=== PATIENT | male | born 1960 | race Two or more races ===

== ENCOUNTER 2018-10-21 12:35 | Emergency (ER) | payer SELFPAY ==
[~2018-10-21] VITALS: Ht 172.7 cm; Wt 76.0 kg
[2018-10-21] MEDS ORDERED: KETOROLAC 60MG/2ML VIAL IM STA (18:29)
[2018-10-21 21:25] VITALS: BP 136/60
== END 2018-10-21 21:27 | disposition home or self-care (01) ==
LOC: ER 12:35
DX: M54.32 Sciatica, left side (principal); F17.210 Nicotine dependence, cigarettes, uncomplicated
CPT/HCPCS: 72100; 73502; 96372; 99283; J1885

== ENCOUNTER 2021-06-06 23:26 | Emergency (ER) | payer OTHER ==
[~2021-06-06] VITALS: Ht 172.7 cm; Wt 80.0 kg
[2021-06-07] MEDS ORDERED: DIPHENHYDRAMINE 50MG CAPSULE PO ONE (01:30)
[2021-06-07] MEDS ORDERED: DEXAMETHASONE 4MG TABLET PO ONE (01:30)
[2021-06-07 02:04] LABS: CHLORIDE 113 mEq/L (98-107)
[2021-06-07 02:13] LABS: BASOPHILS % 1.5 % (0.0-2.0); EOSINOPHILS % 6.8 % (0.0-5.0); HEMATOCRIT. 40.2 % (42.0-52.0); LYMPHOCYTES % 28.7 % (20.0-50.0); MEAN CORPUSCULAR HEMOGLOBIN 31.9 pg (28.0-32.0); MEAN CORPUSCULAR VOLUME 91.7 fL (80.0-94.0); MEAN PLATELET VOLUME 9.1 fl (7.4-10.4); MONOCYTES % 7.8 % (2.0-8.0); NEUTROPHILS % 55.2 % (40.0-76.0); PLATELET 185 x1000/uL (130-400); RED BLOOD CELL COUNT 4.39 mill/uL (4.7-6.1); RED CELL DISTRIBUTION WIDTH 13.7 % (11.6-14.6)
[2021-06-07] MEDS ORDERED: PETR5OIN3 TP (02:22)
[2021-06-07] MEDS ORDERED: B50 MT (02:32)
[2021-06-07 03:36] VITALS: BP 129/55
== END 2021-06-07 03:39 | disposition home or self-care (01) ==
LOC: ER 23:26
DX: R22.0 Localized swelling, mass and lump, head (principal); T78.49XA Other allergy, initial encounter; X58.XXXA Exposure to other specified factors, initial encounter; Z87.891 Personal history of nicotine dependence
CPT/HCPCS: 36415; 71045; 80053; 83880; 84484; 85025; 99284; J8540; Q0163

== ENCOUNTER 2025-08-06 11:20 | Inpatient (IN) | payer OTHER ==
[~2025-08-06] VITALS: Ht 170.2 cm; Wt 71.7 kg
[~2025-08-06 11:20] MED LIST: DIPH50CA42 MT; PETR5OIN3 TP
[2025-08-06 12:21] LABS: BASOPHILS % 0.7 % (0.0-2.0); EOSINOPHILS % 1.3 % (0.0-5.0); HEMATOCRIT. 36.6 % (42.0-52.0); HEMOGLOBIN. 12.3 g/dL (14.0-18.0); LYMPHOCYTES % 18.5 % (20.0-50.0); MEAN PLATELET VOLUME 8.6 fl (7.4-10.4); MONOCYTES % 6.7 % (2.0-8.0); NEUTROPHILS % 72.8 % (40.0-76.0); PLATELET 177 x1000/uL (130-400); RED BLOOD CELL COUNT 4.02 mill/uL (4.7-6.1); RED CELL DISTRIBUTION WIDTH 14.1 % (11.6-14.6)
[2025-08-06 12:42] LABS: CREATININE 0.9 mg/dL (0.6-1.3); TROPONIN I HIGH SENSITIVITY 18 ng/L (3.0-53); UREA NITROGEN BLOOD 11 mg/dL (9-23)
[2025-08-06 12:44] LABS: ASPARTATE AMINOTRANSFERASE 16 IU/L (<34); BILIRUBIN DIRECT 0.4 mg/dL (<=3.0); BILIRUBIN TOTAL 1.2 mg/dL (0.1-1.0); PROTEIN TOTAL 6.3 g/dL (6.0-8.3)
[2025-08-06] MEDS: FUROSEMIDE 40MG/4ML VIAL IVP ONE (13:48)
[2025-08-06] MEDS: ASPIRIN 81MG TABLET PO ONE (14:21)
[2025-08-06] MEDS ORDERED: MAGNESIUM/ALUMINUM HYDROXIDE/SIMETHICONE 30ML UDC PO PRN (14:30)
[2025-08-06] MEDS ORDERED: ZOLPIDEM TARTRATE 5MG TABLET PO PRN (14:30)
[2025-08-06] MEDS ORDERED: ONDANSETRON HCL 4MG/2ML INJ IV PRN (14:30)
[2025-08-06] MEDS ORDERED: CLONIDINE 0.1MG TABLET PO PRN (14:30)
[2025-08-06] MEDS ORDERED: ACETAMINOPHEN 325MG TABLET PO PRN (14:30)
[2025-08-06] MEDS ORDERED: METH-372 PO (14:32)
[2025-08-06] MEDS ORDERED: NALOXONE HCL 0.4MG/ML VIAL IV PRN (14:45)
[2025-08-06 16:00] VITALS: BP 126/43; PULSE 74; RESP 16; TEMP 36.3068
[2025-08-06] MEDS ORDERED: DEXTROSE 50% WATER 50ML SYRINGE IV PRN (16:15)
[2025-08-06] MEDS: INSULIN LISPRO 100 UNITS/ML SUBCUT SCH (17:50)
[2025-08-06] MEDS: BLOOD SUGAR DIAGNOSTIC STRIP TEST SCH (18:18)
[2025-08-06] MEDS: FUROSEMIDE 40MG/4ML VIAL IVP SCH (18:19)
[2025-08-06] MEDS: THIAMINE HCL 100MG TABLET PO SCH (18:19)
[2025-08-06 20:00] VITALS: BP 128/94; PULSE 75; RESP 18; TEMP 36.6; O2SAT 99
[2025-08-06] MEDS: ATORVASTATIN CALCIUM 40MG TABLET PO SCH (20:10)
[2025-08-06] MEDS ORDERED: ATORVASTATIN CALCIUM 40MG TABLET PO SCH (21:00)
[2025-08-07] VITALS (7 sets, daily range): BP systolic 18–135; BP diastolic 45–90; PULSE 60–82; RESP 16–18; TEMP 36.2–36.9; O2SAT 98–100
[2025-08-07 01:19] LABS: TROPONIN I HIGH SENSITIVITY 14 ng/L (3.0-53)
[2025-08-07 07:08] LABS: BASOPHILS % 1.2 % (0.0-2.0); EOSINOPHILS % 0.8 % (0.0-5.0); HEMATOCRIT. 38.6 % (42.0-52.0); HEMOGLOBIN. 13.0 g/dL (14.0-18.0); LYMPHOCYTES % 16.6 % (20.0-50.0); MEAN PLATELET VOLUME 9.2 fl (7.4-10.4); MONOCYTES % 6.0 % (2.0-8.0); NEUTROPHILS % 75.4 % (40.0-76.0); PLATELET 200 x1000/uL (130-400); RED BLOOD CELL COUNT 4.21 mill/uL (4.7-6.1); RED CELL DISTRIBUTION WIDTH 13.8 % (11.6-14.6)
[2025-08-07 07:36] LABS: TRIGLYCERIDE 113.0 mg/dL (0-150)
[2025-08-07 07:37] LABS: CREATININE 1.0 mg/dL (0.6-1.3); LDL CHOLESTEROL 157.0 mg/dL (5-100); UREA NITROGEN BLOOD 12 mg/dL (9-23)
[2025-08-07 07:50] LABS: TROPONIN I HIGH SENSITIVITY 17 ng/L (3.0-53)
[2025-08-07 08:53] LABS: INFLUENZA TYPE A Presumptive Negative (Pres. Neg.)
[2025-08-07 08:54] LABS: INFLUENZA TYPE B Presumptive Negative (Pres. Neg.)
[2025-08-07] MEDS: ENOXAPARIN 40MG/0.4ML SYR SUBCUT SCH (09:00)
[2025-08-07] MEDS ORDERED: ASPIRIN 81MG EC TABLET PO SCH (09:00)
[2025-08-07] MEDS: PANTOPRAZOLE SODIUM 40 MG/VIAL IV SCH (09:10)
[2025-08-07] MEDS: ASPIRIN 81MG TABLET PO SCH (09:54)
[2025-08-07] MEDS: METHIMAZOLE 5MG TABLET PO SCH (09:54)
[2025-08-08] VITALS: BP 102/48; PULSE 70; RESP 17; TEMP 36.5; O2SAT 95
[2025-08-08 04:00] VITALS: BP 107/48; PULSE 66; RESP 17; TEMP 36.6; O2SAT 94
[2025-08-08 08:00] VITALS: BP 122/60; PULSE 80; RESP 18; TEMP 36.2; O2SAT 98
[2025-08-08] MEDS ORDERED: EPINEPHRINE 0.1MG/ML (1:10,000) 10ML SYR ONE (09:15)
[2025-08-08] MEDS ORDERED: IODIXANOL 320MG/ML 100 ML BOTTLE IV ONE (09:16)
[2025-08-08] MEDS ORDERED: HEPARIN 1000 UNITS/ML 10ML ONE (09:16)
[2025-08-08] MEDS ORDERED: LIDOCAINE HCL 1% 20ML VIAL ONE (09:16)
[2025-08-08] MEDS ORDERED: ATROPINE SULFATE 1MG/10ML SYR ONE (09:16)
[2025-08-08] MEDS ORDERED: VERAPAMIL HCL 2.5 MG/1 ML 2ML VIAL IV ONE (09:16)
[2025-08-08] MEDS ORDERED: DIPHENHYDRAMINE 50MG/ML VIAL ONE (09:16)
[2025-08-08] MEDS ORDERED: MIDAZOLAM HCL 2 MG/2 ML VIAL ONE (09:47)
[2025-08-08] MEDS ORDERED: FENTANYL CITRATE/PF 50MCG/ML 2ML VIAL ONE (09:47)
[2025-08-08] MEDS ORDERED: ATROPINE SULFATE 1MG/10ML SYR IV PRN (11:30)
[2025-08-08] MEDS ORDERED: ACETAMINOPHEN 325MG TABLET PO PRN (15:30)
[2025-08-08] MEDS ORDERED: NITROGLYCERIN 0.4MG TABLET SL SL PRN (15:30)
[2025-08-08 16:00] VITALS: BP 118/56; PULSE 78; RESP 12; TEMP 36.8; O2SAT 99
[2025-08-08 20:00] VITALS: BP 131/52; PULSE 72; RESP 22; TEMP 36.6; O2SAT 97
[2025-08-09] VITALS: BP 109/48; PULSE 70; RESP 15; TEMP 36.6; O2SAT 99
[2025-08-09 04:00] VITALS: BP 107/46; PULSE 68; RESP 14; TEMP 36.7; O2SAT 100
[2025-08-09 08:00] VITALS: BP 115/96; PULSE 68; RESP 24; TEMP 36.7; O2SAT 100
[2025-08-09 08:47] LABS: BASOPHILS % 1.8 % (0.0-2.0); EOSINOPHILS % 2.5 % (0.0-5.0); HEMATOCRIT. 39.7 % (42.0-52.0); HEMOGLOBIN. 13.3 g/dL (14.0-18.0); LYMPHOCYTES % 21.0 % (20.0-50.0); MEAN PLATELET VOLUME 9.1 fl (7.4-10.4); MONOCYTES % 8.3 % (2.0-8.0); NEUTROPHILS % 66.4 % (40.0-76.0); PLATELET 180 x1000/uL (130-400); RED BLOOD CELL COUNT 4.37 mill/uL (4.7-6.1); RED CELL DISTRIBUTION WIDTH 14.2 % (11.6-14.6)
[2025-08-09 09:04] LABS: CREATININE 0.9 mg/dL (0.6-1.3); UREA NITROGEN BLOOD 12 mg/dL (9-23)
[2025-08-09 12:00] VITALS: BP 101/51; PULSE 75; RESP 20; TEMP 36.6; O2SAT 99
[2025-08-09 16:00] VITALS: BP 126/49; PULSE 70; RESP 27; TEMP 36.8; O2SAT 97
[2025-08-09 20:00] VITALS: BP 114/45; PULSE 69; RESP 15; TEMP 36.2; O2SAT 98
[2025-08-09] MEDS: HYDROCODONE/ACETAMINOPHEN 5/325MG TABLET PO PRN (23:40)
[2025-08-10] VITALS: BP 116/42; PULSE 73; RESP 27; TEMP 36.7; O2SAT 98
[2025-08-10 04:00] VITALS: BP 118/45; PULSE 81; RESP 18; TEMP 36.6; O2SAT 81
[2025-08-10 07:49] VITALS: BP 107/51; PULSE 61; RESP 20; TEMP 36.5; O2SAT 98
[2025-08-10] MEDS: METHIMAZOLE 10MG TABLET PO SCH (11:55)
[2025-08-10 12:00] VITALS: BP 118/46; PULSE 71; RESP 18; TEMP 36.7; O2SAT 98
[2025-08-10 16:00] VITALS: BP 100/42; PULSE 63; RESP 19; TEMP 36.5; O2SAT 98
[2025-08-10 18:21] LABS: BASOPHILS % 2.1 % (0.0-2.0); EOSINOPHILS % 2.9 % (0.0-5.0); HEMATOCRIT. 39.5 % (42.0-52.0); HEMOGLOBIN. 13.7 g/dL (14.0-18.0); LYMPHOCYTES % 21.8 % (20.0-50.0); MEAN PLATELET VOLUME 9.2 fl (7.4-10.4); MONOCYTES % 8.1 % (2.0-8.0); NEUTROPHILS % 65.1 % (40.0-76.0); PLATELET 193 x1000/uL (130-400); RED BLOOD CELL COUNT 4.38 mill/uL (4.7-6.1); RED CELL DISTRIBUTION WIDTH 13.7 % (11.6-14.6)
[2025-08-10 18:36] LABS: CREATININE 1.0 mg/dL (0.6-1.3); UREA NITROGEN BLOOD 13 mg/dL (9-23)
[2025-08-10 20:00] VITALS: BP 116/44; PULSE 73; RESP 23; TEMP 36.8; O2SAT 99
[2025-08-11] VITALS: BP 115/50; PULSE 66; RESP 16; TEMP 36.6; O2SAT 98
[2025-08-11 04:00] VITALS: BP 104/91; PULSE 63; RESP 14; TEMP 36.7; O2SAT 98
[2025-08-11 08:00] VITALS: BP 118/41; PULSE 72; RESP 13; TEMP 36.4; O2SAT 99
[2025-08-11 12:00] VITALS: BP 113/95; PULSE 65; RESP 19; TEMP 36.7; O2SAT 100
[2025-08-11 13:38] LABS: BASOPHILS % 0.9 % (0.0-2.0); EOSINOPHILS % 2.0 % (0.0-5.0); HEMATOCRIT. 40.7 % (42.0-52.0); HEMOGLOBIN. 13.8 g/dL (14.0-18.0); LYMPHOCYTES % 23.4 % (20.0-50.0); MEAN PLATELET VOLUME 8.9 fl (7.4-10.4); MONOCYTES % 8.5 % (2.0-8.0); NEUTROPHILS % 65.2 % (40.0-76.0); PLATELET 197 x1000/uL (130-400); RED BLOOD CELL COUNT 4.47 mill/uL (4.7-6.1); RED CELL DISTRIBUTION WIDTH 13.7 % (11.6-14.6)
[2025-08-11 13:53] LABS: CREATININE 1.0 mg/dL (0.6-1.3)
[2025-08-11 13:54] LABS: UREA NITROGEN BLOOD 11 mg/dL (9-23)
[2025-08-11 13:56] LABS: INR 1.0
[2025-08-11 16:00] VITALS: BP 105/41; PULSE 67; RESP 13; TEMP 36.8; O2SAT 96
[2025-08-11 20:00] VITALS: BP 114/41; PULSE 65; RESP 21; TEMP 36.6; O2SAT 96
[2025-08-11] MEDS ORDERED: BISACODYL 10MG SUPP PR PRN (21:00)
[2025-08-11] MEDS ORDERED: DIPHENHYDRAMINE 25MG CAPSULE PO PRN (21:00)
[2025-08-11] MEDS: ALLOPURINOL 300 MG TABLET PO SCH (21:33)
[2025-08-11] MEDS: ASCORBIC ACID 500 MG TABLET PO SCH (21:33)
[2025-08-11] MEDS: DOCUSATE SODIUM 100MG CAPSULE PO SCH (21:33)
[2025-08-11] MEDS: CHLORHEXIDINE GLUCONATE 4% EXTERNAL USE TOP SCH (21:36)
[2025-08-12] VITALS (56 sets, daily range): BP systolic 67–173; BP diastolic 40–110; PULSE 60–89; RESP 8–30; TEMP 36.7–36.8; O2SAT 97–100
[2025-08-12] MEDS ORDERED: LR with VERAPAMIL, NTG, HEPARIN, SODIUM BICARBONATE (Soln) IV PRN (05:00)
[2025-08-12] MEDS ORDERED: DEL NIDO CARDIOPLEGIA 1,000 ML (PREMIX) IV NR (05:00)
[2025-08-12] MEDS ORDERED: VANCOMYCIN 1G PREMIX 200 ML IV SCH (05:00)
[2025-08-12] MEDS ORDERED: NOREPINEPHRINE 8MG/250ML PMX 250 ML IV PRN (05:00)
[2025-08-12] MEDS ORDERED: NICARDIPINE 40MG/200ML PREMIX 200 ML IV PRN (05:00)
[2025-08-12] MEDS ORDERED: DEL NIDO CARDIOPLEGIA 1,000 ML (PREMIX) IV SCH (05:00)
[2025-08-12] MEDS ORDERED: INSULIN REGULAR 100U/100ML PMX 100 ML IV SCH (05:00)
[2025-08-12] MEDS ORDERED: PAPAVERINE HCL 180MG in SODIUM CHLORIDE 0.9% 24ML IV PRN (05:00)
[2025-08-12] MEDS ORDERED: DOPAMINE 400MG/250ML PREMIX 250 ML IV PRN (05:00)
[2025-08-12] MEDS ORDERED: AMINOCAPROIC ACID 5,000 MG in SODIUM CHLORIDE 0.9% 250 ML IV PRN (05:00)
[2025-08-12] MEDS ORDERED: DOBUTAMINE 250 MG/250 ML PREMIX IV PRN (05:00)
[2025-08-12] MEDS ORDERED: EPINEPHRINE 5 MG in DEXT 5% WATER 250 ML IV PRN (05:00)
[2025-08-12] MEDS: FAMOTIDINE 20MG/2ML VIAL IV SCH (08:27)
[2025-08-12] MEDS: CHLORHEXIDINE GLUCONATE 4% EXTERNAL USE TOP SCH (08:28)
[2025-08-12 08:57] LABS: BASOPHILS % 2.2 % (0.0-2.0); EOSINOPHILS % 2.4 % (0.0-5.0); HEMATOCRIT. 38.4 % (42.0-52.0); HEMOGLOBIN. 13.2 g/dL (14.0-18.0); LYMPHOCYTES % 24.7 % (20.0-50.0); MEAN PLATELET VOLUME 8.9 fl (7.4-10.4); MONOCYTES % 7.8 % (2.0-8.0); NEUTROPHILS % 62.9 % (40.0-76.0); PLATELET 185 x1000/uL (130-400); RED BLOOD CELL COUNT 4.23 mill/uL (4.7-6.1); RED CELL DISTRIBUTION WIDTH 13.8 % (11.6-14.6)
[2025-08-12] MEDS ORDERED: NITROGLYCERIN 50MG PREMIX 250 ML IV ONE (08:57)
[2025-08-12] MEDS ORDERED: DEXMEDETOMIDINE 250 ML IV ONE (08:57)
[2025-08-12 09:18] LABS: CREATININE 0.8 mg/dL (0.6-1.3)
[2025-08-12 09:19] LABS: UREA NITROGEN BLOOD 12 mg/dL (9-23)
[2025-08-12 09:21] LABS: PHOSPHORUS 3.9 mg/dL (2.5-4.9)
[2025-08-12] MEDS ORDERED: POLYMYXIN B SULFATE 500000 UNITS/VIAL ONE ×2 (09:33→10:45)
[2025-08-12] MEDS ORDERED: THROMBIN (BOVINE) 5000 UNITS/VIAL TOP ONE (09:33)
[2025-08-12] MEDS ORDERED: SKIN ADHESIVE 0.7 GM EA TOP ONE (09:34)
[2025-08-12] MEDS ORDERED: ROCURONIUM BROMIDE 10MG/ML VIAL 5ML IV ONE ×2 (10:42→12:03)
[2025-08-12] MEDS ORDERED: ONDANSETRON HCL 4MG/2ML INJ ONE ×2 (10:42→14:02)
[2025-08-12] MEDS ORDERED: AMINOCAPROIC ACID 250 MG/ML 20ML VIAL ONE ×2 (10:42→10:54)
[2025-08-12] MEDS ORDERED: METOCLOPRAMIDE HCL 10MG/2ML VIAL ONE (10:42)
[2025-08-12] MEDS ORDERED: ETOMIDATE 2MG/ML 10ML VIAL IV ONE (10:42)
[2025-08-12] MEDS ORDERED: PROPOFOL 200MG/20ML VIAL IV ONE (10:43)
[2025-08-12] MEDS ORDERED: FENTANYL CITRATE/PF 50MCG/ML 5ML VIAL ONE (10:44)
[2025-08-12] MEDS ORDERED: MIDAZOLAM HCL 2 MG/2 ML VIAL ONE (10:46)
[2025-08-12] MEDS ORDERED: HEPARIN 1000 UNITS/ML 10ML ONE ×2 (10:51→11:57)
[2025-08-12] MEDS ORDERED: LIDOCAINE HCL 2% 5ML SYRINGE IV ONE (10:54)
[2025-08-12] MEDS ORDERED: ACETAMINOPHEN 500MG TABLET ONE (11:02)
[2025-08-12] MEDS ORDERED: CALCIUM CHLORIDE 1GM/10ML SYR IV ONE (11:57)
[2025-08-12] MEDS ORDERED: PROPOFOL 10MG/ML 100ML 100 ML IV ONE (12:11)
[2025-08-12] MEDS ORDERED: ACETAMINOPHEN 1000MG/100ML 100 ML IV ONE (12:37)
[2025-08-12] MEDS ORDERED: CEFAZOLIN SODIUM 1000MG/VIAL ONE ×2 (12:52→14:06)
[2025-08-12] MEDS ORDERED: PROTAMINE SULFATE 10MG/ML VIAL 25ML IV ONE (13:48)
[2025-08-12] MEDS ORDERED: DESMOPRESSIN ACETATE 4MCG/ML AMP ONE (14:15)
[2025-08-12] MEDS ORDERED: SODIUM CHLORIDE 0.9% 500 ML IV PRN (14:30)
[2025-08-12] MEDS ORDERED: ONDANSETRON HCL 4MG/2ML INJ IV PRN (14:30)
[2025-08-12] MEDS ORDERED: ACETAMINOPHEN 325MG TABLET PO PRN (14:30)
[2025-08-12] MEDS ORDERED: MAGNESIUM SULFATE 3 GM in DEXT 5% WATER 100 ML IV PRN (14:30)
[2025-08-12] MEDS ORDERED: CALCIUM CHLORIDE 5,000 MG in DEXT 5% WATER 500 ML IV PRN (14:30)
[2025-08-12] MEDS ORDERED: ALBUMIN HUMAN 25GM/100ML (25%) IV PRN (14:30)
[2025-08-12] MEDS ORDERED: MAGNESIUM 1 G PREMIX 100 ML IV PRN (14:30)
[2025-08-12] MEDS ORDERED: CALCIUM CHLORIDE 3,000 MG in DEXT 5% WATER 250 ML IV PRN (14:30)
[2025-08-12 14:50] LABS: BASOPHILS % 1.1 % (0.0-2.0); EOSINOPHILS % 1.2 % (0.0-5.0); HEMATOCRIT. 28.9 % (42.0-52.0); HEMOGLOBIN. 10.1 g/dL (14.0-18.0); LYMPHOCYTES % 24.9 % (20.0-50.0); MEAN PLATELET VOLUME 9.0 fl (7.4-10.4); MONOCYTES % 3.0 % (2.0-8.0); NEUTROPHILS % 69.8 % (40.0-76.0); PLATELET 122 x1000/uL (130-400); RED BLOOD CELL COUNT 3.22 mill/uL (4.7-6.1); RED CELL DISTRIBUTION WIDTH 13.4 % (11.6-14.6)
[2025-08-12] MEDS: BLOOD SUGAR DIAGNOSTIC STRIP TEST SCH (15:00)
[2025-08-12] MEDS ORDERED: DEXTROSE 50% WATER 50ML SYRINGE IV PRN ×2 (15:00)
[2025-08-12 15:02] LABS: INR 1.1
[2025-08-12 15:04] LABS: CREATININE 1.0 mg/dL (0.6-1.3); UREA NITROGEN BLOOD 12 mg/dL (9-23)
[2025-08-12 15:06] LABS: ASPARTATE AMINOTRANSFERASE 36 IU/L (<34); BILIRUBIN TOTAL 0.6 mg/dL (0.1-1.0); PHOSPHORUS 1.8 mg/dL (2.5-4.9)
[2025-08-12 15:07] LABS: PROTEIN TOTAL 5.5 g/dL (6.0-8.3)
[2025-08-12] MEDS ORDERED: MIDAZOLAM HCL 5 MG/5 ML VIAL IV SCH (15:15)
[2025-08-12] MEDS: CALCIUM CHLORIDE 1GM/10ML SYR IV NR (15:23)
[2025-08-12] MEDS: MIDAZOLAM HCL 2 MG/2 ML VIAL IV SCH (15:29)
[2025-08-12] MEDS: DEXT 5%/0.45% NACL 1000ML 1,000 ML IV SCH (15:29)
[2025-08-12] MEDS: DOPAMINE 400MG/250ML PREMIX 250 ML IV PRN (15:31)
[2025-08-12] MEDS: EPINEPHRINE 5 MG in DEXT 5% WATER 245 ML IV PRN (15:32)
[2025-08-12] MEDS: KCL 10MEQ/50ML PREMIX 150 ML IV PRN (15:42)
[2025-08-12 15:43] LABS: BG BASE EXCESS -0.6 mmol/L (-2.0-3.0); BG CARBOXYHEMOGLOBIN 0.3 % (0.5-1.5); BG DEOXYHEMOGLOBIN 0.5 % (0.0-5.0); BG FRACTION INSPIRED OXYGEN 100; BG HCO3 ACT 25.8 mmol/L (21.0-28.0); BG METHEMOGLOBIN 0.1 % (0.5-1.5); BG OXYGEN SATURATION 99.5 % (94.0-98.0); BG OXYHEMOGLOBIN 99.1 % (94.0-98.0); BG PCO2 49.9 mmHg (35.0-48.0); BG PH 7.331 (7.350-7.450); BG PO2 259.6 mmHg (83.0-108.0); BG SAMPLE SITE ALINE; BG TOTAL HEMOGLOBIN 11.6 g/dL (13.5-17.5); BG VENT MODE MASK - NRB
[2025-08-12] MEDS: ALBUMIN HUMAN 25GM/500ML (5%) IV SCH (15:58)
[2025-08-12] MEDS: COAGULATION FACTOR VIIA RECOMB 1MG VIAL IV NR (15:59)
[2025-08-12] MEDS: MIDAZOLAM HCL 2 MG/2 ML VIAL IV NR (16:00)
[2025-08-12] MEDS: FENTANYL CITRATE/PF 50MCG/ML 2ML VIAL IV SCH (16:30)
[2025-08-12 17:01] LABS: BASOPHILS % 0.5 % (0.0-2.0); EOSINOPHILS % 0.2 % (0.0-5.0); HEMATOCRIT. 27.2 % (42.0-52.0); HEMOGLOBIN. 9.3 g/dL (14.0-18.0); LYMPHOCYTES % 7.4 % (20.0-50.0); MEAN PLATELET VOLUME 8.6 fl (7.4-10.4); MONOCYTES % 6.3 % (2.0-8.0); NEUTROPHILS % 85.6 % (40.0-76.0); PLATELET 81 x1000/uL (130-400); RED BLOOD CELL COUNT 3.01 mill/uL (4.7-6.1); RED CELL DISTRIBUTION WIDTH 13.6 % (11.6-14.6)
[2025-08-12 17:11] LABS: INR 0.9
[2025-08-12 17:14] LABS: CREATININE 1.1 mg/dL (0.6-1.3); UREA NITROGEN BLOOD 13 mg/dL (9-23)
[2025-08-12 19:34] LABS: BG BASE EXCESS -0.6 mmol/L (-2.0-3.0); BG CARBOXYHEMOGLOBIN 0.3 % (0.5-1.5); BG DEOXYHEMOGLOBIN 1.2 % (0.0-5.0); BG FLOW(L/min) 5.00 L/min; BG FRACTION INSPIRED OXYGEN 40; BG HCO3 ACT 24.1 mmol/L (21.0-28.0); BG METHEMOGLOBIN 0.3 % (0.5-1.5); BG OXYGEN SATURATION 98.8 % (94.0-98.0); BG OXYHEMOGLOBIN 98.2 % (94.0-98.0); BG PCO2 40.0 mmHg (35.0-48.0); BG PH 7.398 (7.350-7.450); BG PO2 163.4 mmHg (83.0-108.0); BG SAMPLE SITE ALINE; BG TOTAL HEMOGLOBIN 10.6 g/dL (13.5-17.5); BG VENT MODE NASAL CANNULA
[2025-08-12 19:51] LABS: HEMATOCRIT. 28.4 % (42.0-52.0); HEMOGLOBIN. 9.8 g/dL (14.0-18.0); MEAN PLATELET VOLUME 8.9 fl (7.4-10.4); PLATELET 90 x1000/uL (130-400); RED BLOOD CELL COUNT 3.23 mill/uL (4.7-6.1); RED CELL DISTRIBUTION WIDTH 14.4 % (11.6-14.6)
[2025-08-12 20:03] LABS: INR 0.9
[2025-08-12] MEDS: FUROSEMIDE 40MG/4ML VIAL IVP NR (20:08)
[2025-08-12 20:13] LABS: CREATININE 1.1 mg/dL (0.6-1.3); UREA NITROGEN BLOOD 14 mg/dL (9-23)
[2025-08-12 20:15] LABS: PHOSPHORUS 2.2 mg/dL (2.5-4.9)
[2025-08-12 20:24] LABS: BAND% 2.0 % (1.0-6.0); LYMPHOCYTES % MANUAL 12.0 % (20.0-50.0); MONOCYTES % MANUAL 7.0 % (2.0-8.0); NEUTROPHILS % MANUAL 79.0 % (45.0-75.0)
[2025-08-12 20:25] LABS: PLATELET ESTIMATE DECREASED
[2025-08-12] MEDS: KCL 10MEQ/50ML PREMIX 200 ML IV PRN (20:57)
[2025-08-12] MEDS: MAGNESIUM 2 G PREMIX 50 ML IV PRN (20:58)
[2025-08-12] MEDS: BACITRACIN 14GM TUBE TOP SCH (21:00)
[2025-08-12] MEDS: DOCUSATE SODIUM 100MG CAPSULE PO SCH (21:00)
[2025-08-12] MEDS: IPRATROPIUM/ALBUTEROL 0.5-3(2.5)MG/3ML NEB HHN SCH (21:23)
[2025-08-12] MEDS: MAGNESIUM HYDROXIDE 400MG/5ML 30ML UDC PO SCH (22:30)
[2025-08-12] MEDS: CEFAZOLIN 1000MG PREMIX 50 ML IV SCH (23:04)
[2025-08-12] MEDS: ALBUMIN HUMAN 12.5G/250ML (5%) IV PRN (23:14)
[2025-08-13] VITALS (103 sets, daily range): BP systolic 51–137; BP diastolic 36–90; PULSE 81–137; RESP 9–40; TEMP 36.8–37.3; O2SAT 95–100
[2025-08-13 05:28] LABS: MEAN PLATELET VOLUME 9.6 fl (7.4-10.4); PLATELET 114 x1000/uL (130-400); RED BLOOD CELL COUNT 2.35 mill/uL (4.7-6.1); RED CELL DISTRIBUTION WIDTH 14.4 % (11.6-14.6)
[2025-08-13 05:37] LABS: CREATININE 1.3 mg/dL (0.6-1.3); UREA NITROGEN BLOOD 16 mg/dL (9-23)
[2025-08-13 05:39] LABS: PHOSPHORUS 3.5 mg/dL (2.5-4.9)
[2025-08-13] MEDS: KCL 10MEQ/50ML PREMIX 100 ML IV PRN (05:52)
[2025-08-13] MEDS: INSULIN REGULAR 100U/100ML PMX 100 ML IV PRN (05:52)
[2025-08-13 06:44] LABS: HEMATOCRIT. 20.6 % (42.0-52.0); HEMOGLOBIN. 7.0 g/dL (14.0-18.0)
[2025-08-13] MEDS: FAMOTIDINE 20MG/2ML VIAL IV SCH (08:45)
[2025-08-13] MEDS: MORPHINE SULFATE 4 MG/ML INJ (FOR IV/IM USE) IV PRN (10:50)
[2025-08-13 20:46] LABS: BAND% 5.0 % (1.0-6.0); LYMPHOCYTES % MANUAL 5.0 % (20.0-50.0); MONOCYTES % MANUAL 10.0 % (2.0-8.0); NEUTROPHILS % MANUAL 80.0 % (45.0-75.0); PLATELET ESTIMATE DECREASED
[2025-08-13] MEDS: ACETAMINOPHEN 325MG TABLET PO PRN (21:03)
[2025-08-13] MEDS: KETOROLAC 30MG/ML VIAL IV PRN (22:21)
[2025-08-14] VITALS (105 sets, daily range): BP systolic 77–120; BP diastolic 48–96; PULSE 80–118; RESP 12–39; TEMP 36.5–37.3; O2SAT 92–100
[2025-08-14 06:15] LABS: HEMATOCRIT. 22.8 % (42.0-52.0); HEMOGLOBIN. 7.9 g/dL (14.0-18.0); MEAN PLATELET VOLUME 9.5 fl (7.4-10.4); PLATELET 69 x1000/uL (130-400); RED BLOOD CELL COUNT 2.52 mill/uL (4.7-6.1); RED CELL DISTRIBUTION WIDTH 14.8 % (11.6-14.6)
[2025-08-14 06:41] LABS: CREATININE 1.1 mg/dL (0.6-1.3); UREA NITROGEN BLOOD 18 mg/dL (9-23)
[2025-08-14 06:43] LABS: PHOSPHORUS 3.9 mg/dL (2.5-4.9)
[2025-08-14] MEDS: MAGNESIUM 2 G PREMIX 50 ML IV SCH (07:22)
[2025-08-14] MEDS ORDERED: DEXTROSE 50% WATER 50ML SYRINGE IV PRN (07:30)
[2025-08-14] MEDS: BLOOD SUGAR DIAGNOSTIC STRIP TEST SCH (07:50)
[2025-08-14] MEDS: INSULIN LISPRO 100 UNITS/ML SUBCUT SCH (08:06)
[2025-08-14] MEDS ORDERED: ASPIRIN 81MG EC TABLET PO SCH (09:00)
[2025-08-14] MEDS: METOCLOPRAMIDE HCL 10MG/2ML VIAL IV SCH (12:02)
[2025-08-14] MEDS: FUROSEMIDE 40MG/4ML VIAL IVP SCH (12:02)
[2025-08-14 13:39] LABS: BAND% 8.0 % (1.0-6.0); LYMPHOCYTES % MANUAL 11.0 % (20.0-50.0); MONOCYTES % MANUAL 15.0 % (2.0-8.0); NEUTROPHILS % MANUAL 66.0 % (45.0-75.0); PLATELET ESTIMATE DECREASED
[2025-08-14] MEDS: MIDODRINE HCL 5MG TABLET PO SCH ×2 (15:12→21:13)
[2025-08-14 15:17] LABS: HEMATOCRIT. 28.1 % (42.0-52.0); HEMOGLOBIN. 9.8 g/dL (14.0-18.0); MEAN PLATELET VOLUME 9.4 fl (7.4-10.4); PLATELET 81 x1000/uL (130-400); RED BLOOD CELL COUNT 3.23 mill/uL (4.7-6.1); RED CELL DISTRIBUTION WIDTH 15.2 % (11.6-14.6)
[2025-08-14 15:29] LABS: CREATININE 1.2 mg/dL (0.6-1.3); UREA NITROGEN BLOOD 28 mg/dL (9-23)
[2025-08-14 15:31] LABS: PHOSPHORUS 3.9 mg/dL (2.5-4.9)
[2025-08-14 15:47] LABS: BAND% 1.0 % (1.0-6.0); LYMPHOCYTES % MANUAL 5.0 % (20.0-50.0); MONOCYTES % MANUAL 8.0 % (2.0-8.0); NEUTROPHILS % MANUAL 86.0 % (45.0-75.0); PLATELET ESTIMATE DECREASED
[2025-08-15] VITALS (96 sets, daily range): BP systolic 95–127; BP diastolic 55–91; PULSE 72–95; RESP 12–35; TEMP 36.6696–37.1; O2SAT 93–100
[2025-08-15 06:32] LABS: BASOPHILS % 0.4 % (0.0-2.0); EOSINOPHILS % 0.4 % (0.0-5.0); HEMATOCRIT. 25.4 % (42.0-52.0); HEMOGLOBIN. 8.7 g/dL (14.0-18.0); LYMPHOCYTES % 7.9 % (20.0-50.0); MEAN PLATELET VOLUME 9.4 fl (7.4-10.4); MONOCYTES % 13.0 % (2.0-8.0); NEUTROPHILS % 78.3 % (40.0-76.0); PLATELET 68 x1000/uL (130-400); RED BLOOD CELL COUNT 2.87 mill/uL (4.7-6.1); RED CELL DISTRIBUTION WIDTH 15.9 % (11.6-14.6)
[2025-08-15] MEDS: ALBUMIN HUMAN 25GM/100ML (25%) IV NR (07:01)
[2025-08-15 07:05] LABS: CREATININE 0.9 mg/dL (0.6-1.3)
[2025-08-15 07:06] LABS: UREA NITROGEN BLOOD 23 mg/dL (9-23)
[2025-08-15 07:08] LABS: PHOSPHORUS 2.7 mg/dL (2.5-4.9)
[2025-08-15] MEDS: ACETAMINOPHEN 325MG TABLET PO PRN (09:09)
[2025-08-15] MEDS: FUROSEMIDE 40MG/4ML VIAL IVP SCH (13:20)
[2025-08-15] MEDS: THROAT LOZENGES-BENZOCAINE/MENTH/CETYLPYRD CL LOZENGES MM PRN (15:49)
[2025-08-16] VITALS (9 sets, daily range): BP systolic 105–134; BP diastolic 50–73; PULSE 75–101; RESP 20–28; TEMP 36.6–37.4; O2SAT 93–98
[2025-08-16] MEDS: GUAIFENESIN 200MG/10ML SUGAR FREE UDC PO PRN (09:06)
[2025-08-16 13:08] LABS: CREATININE 1.0 mg/dL (0.6-1.3); INR 1.0; UREA NITROGEN BLOOD 18 mg/dL (9-23)
[2025-08-16 13:16] LABS: BASOPHILS % 0.5 % (0.0-2.0); EOSINOPHILS % 0.5 % (0.0-5.0); HEMATOCRIT. 31.7 % (42.0-52.0); HEMOGLOBIN. 10.7 g/dL (14.0-18.0); LYMPHOCYTES % 8.5 % (20.0-50.0); MEAN PLATELET VOLUME 9.2 fl (7.4-10.4); MONOCYTES % 13.2 % (2.0-8.0); NEUTROPHILS % 77.3 % (40.0-76.0); PLATELET 116 x1000/uL (130-400); RED BLOOD CELL COUNT 3.60 mill/uL (4.7-6.1); RED CELL DISTRIBUTION WIDTH 16.1 % (11.6-14.6)
[2025-08-16] MEDS: FUROSEMIDE 40MG/4ML VIAL IVP NR (15:15)
[2025-08-16] MEDS ORDERED: NALOXONE HCL 0.4MG/ML VIAL IV PRN (15:30)
[2025-08-16] MEDS ORDERED: KETOROLAC 15MG/ML VIAL IV PRN (15:30)
[2025-08-16] MEDS: MAGNESIUM SULFATE 3 GM in DEXT 5% WATER 94 ML IV NR (17:17)
[2025-08-17] VITALS (11 sets, daily range): BP systolic 113–141; BP diastolic 69–81; PULSE 87–108; RESP 20–30; TEMP 36.4–37.3; O2SAT 95–100
[2025-08-17] MEDS ORDERED: HYDR-4001 MT (09:28)
[2025-08-17] MEDS ORDERED: FURO-151 MT (09:28)
[2025-08-17] MEDS ORDERED: ASPI-1160 PO (09:28)
[2025-08-17] MEDS ORDERED: THIA100T72 PO (09:28)
[2025-08-17] MEDS ORDERED: LIP40 PO (09:28)
[2025-08-17] MEDS ORDERED: DOCU-422 PO (09:28)
[2025-08-17] MEDS: TAMSULOSIN HCL 0.4MG SR CAPSULE PO SCH (21:49)
[2025-08-17 21:55] LABS: INFLUENZA TYPE A Presumptive Negative (Pres. Neg.); INFLUENZA TYPE B Presumptive Negative (Pres. Neg.)
[2025-08-18] VITALS (7 sets, daily range): BP systolic 102–139; BP diastolic 61–83; PULSE 88–97; RESP 19–24; TEMP 36.8–37.2; O2SAT 95–100
[2025-08-18] MEDS: TAMSULOSIN HCL 0.4MG SR CAPSULE PO SCH (10:24)
[2025-08-18] MEDS: FAMOTIDINE 20MG TABLET PO SCH (10:25)
[2025-08-18 11:28] LABS: CLARITY URINE CLOUDY (CLEAR); COLOR URINE DARK YELLOW (YELLOW); GLUCOSE URINE NEGATIVE (NEGATIVE); KETONES URINE NEGATIVE (NEGATIVE); LEUKOCYTE ESTERASE URINE TRACE (NEGATIVE); NITRITE URINE NEGATIVE (NEGATIVE); OCCULT BLOOD URINE 3+ (NEGATIVE); PH URINE 5.5 (4.5-8.0); PROTEIN URINE 1+ (NEGATIVE); SPECIFIC GRAVITY URINE 1.014 (1.005-1.030); UROBILINOGEN URINE 1.0 E.U./dL (0.2-1.0)
[2025-08-18 12:20] LABS: RBC URINE TNTC /hpf (0-2)
[2025-08-18 12:21] LABS: SQUAMOUS EPITHELIAL CELL URINE NONE SEEN /lpf (RARE/1+)
[2025-08-18 12:22] LABS: BACTERIA URINE 2+; WBC URINE 0-2 /hpf (0-2)
[2025-08-18 16:56] LABS: BASOPHILS % 0.7 % (0.0-2.0); EOSINOPHILS % 2.5 % (0.0-5.0); HEMATOCRIT. 31.9 % (42.0-52.0); HEMOGLOBIN. 10.8 g/dL (14.0-18.0); LYMPHOCYTES % 11.6 % (20.0-50.0); MEAN PLATELET VOLUME 9.7 fl (7.4-10.4); MONOCYTES % 14.9 % (2.0-8.0); NEUTROPHILS % 70.3 % (40.0-76.0); PLATELET 175 x1000/uL (130-400); RED BLOOD CELL COUNT 3.59 mill/uL (4.7-6.1); RED CELL DISTRIBUTION WIDTH 15.6 % (11.6-14.6)
[2025-08-18 17:11] LABS: CREATININE 0.8 mg/dL (0.6-1.3); UREA NITROGEN BLOOD 15 mg/dL (9-23)
== END 2025-08-18 17:20 | disposition home health service (06) | DRG 216 ==
LOC: ER 11:20 → 6WST 13:20 → EDBEDREQ 13:52 → EDBEDREQTM 13:52 → 3WST 08-08 14:53 → CVICU 08-12 13:56 → 3WST 08-15 23:51
PROVIDERS: ADMIT Internal Medicine; ATTEND Internal Medicine
PROC: 4A023N7 Measurement of Cardiac Sampling and Pressure, Left Heart, Percutaneous Approach (ICD-10-PCS; principal; 2025-08-08)
PROC: B211YZZ Fluoroscopy of Multiple Coronary Arteries using Other Contrast (ICD-10-PCS; 2025-08-08)
PROC: 02RF08Z Replacement of Aortic Valve with Zooplastic Tissue, Open Approach (ICD-10-PCS; 2025-08-12)
PROC: 0210093 Bypass Coronary Artery, One Artery from Coronary Artery with Autologous Venous Tissue, Open Approach (ICD-10-PCS; 2025-08-12)
PROC: 02100Z9 Bypass Coronary Artery, One Artery from Left Internal Mammary, Open Approach (ICD-10-PCS; 2025-08-12)
PROC: 06BQ4ZZ Excision of Left Saphenous Vein, Percutaneous Endoscopic Approach (ICD-10-PCS; 2025-08-12)
PROC: 5A1221Z Performance of Cardiac Output, Continuous (ICD-10-PCS; 2025-08-12)
PROC: B24BZZ4 Ultrasonography of Heart with Aorta, Transesophageal (ICD-10-PCS; 2025-08-12)
PROC: 30233K1 Transfusion of Nonautologous Frozen Plasma into Peripheral Vein, Percutaneous Approach (ICD-10-PCS; 2025-08-12)
PROC: 30243N1 Transfusion of Nonautologous Red Blood Cells into Central Vein, Percutaneous Approach (ICD-10-PCS; 2025-08-12)
PROC: 30233R1 Transfusion of Nonautologous Platelets into Peripheral Vein, Percutaneous Approach (ICD-10-PCS; 2025-08-12)
PROC: 30233M1 Transfusion of Nonautologous Plasma Cryoprecipitate into Peripheral Vein, Percutaneous Approach (ICD-10-PCS; 2025-08-12)
DX: I25.110 Atherosclerotic heart disease of native coronary artery with unstable angina pectoris (principal); I50.43 Acute on chronic combined systolic (congestive) and diastolic (congestive) heart failure; J96.01 Acute respiratory failure with hypoxia; I35.0 Nonrheumatic aortic (valve) stenosis; Z20.822 Contact with and (suspected) exposure to COVID-19; I11.0 Hypertensive heart disease with heart failure; E78.5 Hyperlipidemia, unspecified; E11.9 Type 2 diabetes mellitus without complications; E05.90 Thyrotoxicosis, unspecified without thyrotoxic crisis or storm; E03.9 Hypothyroidism, unspecified; I44.0 Atrioventricular block, first degree; I45.10 Unspecified right bundle-branch block; D64.9 Anemia, unspecified; F17.210 Nicotine dependence, cigarettes, uncomplicated
CPT/HCPCS: 36415; 36600; 71045; 73630; 80048; 80053; 80061; 80076; 81003; 82375; 82805; 82962; 83036; 83735; 83880; 84100; 84132; 84443; 84484; 85014; 85018; 85025; 85347; 85379; 85384; 86850; 86900; 86920; 86927; 87070; 87075; 87426; 87804; 88304; 88311; 93005; 93306; 93458; 93880; 93970; 94060; 94070; 94640; 94664; 97110; 97116; 97162; 97166; 97530; 98960; 99291; A4606; C1725; C1729; C1751; C1758; C1769; C1887; C1893; J0461; J0690; J1200; J1265; J1308; J1644; J1650; J1815; J1885; J1938; J2003; J2250; J2270; J2405; J2470; J2597; J2704; J2720; J2765; J3010; J3373; J3475; J3480; J3490; J7060; J7189; L3908; P9012; P9016; P9017; P9034; P9041; P9047; Q9967; A4217; C1713; J0131